=== PATIENT | female | born 1975 | race Caucasian/White ===

== ENCOUNTER 2023-02-07 19:55 | Emergency (ER) | payer OTHER, SELFPAY ==
[2023-02-07] VITALS (12 sets, daily range): BP systolic 126–135; BP diastolic 84–101; PULSE 68–74; RESP 14–19; O2SAT 97–100
--- NOTE | 2023-02-07 21:10 | ED.ALLEREA ---
HPI - Allergic Reaction General Chief complaint: Allergic Reaction Stated complaint: allergic reaction Time Seen by Provider: 02/07/23 20:34 History of Present Illness HPI narrative: 47-year-old female presented the emergency department for evaluation for allergic reaction. Patient states that over the weekend she had [place] and did notice a urticarial rash along her bikini line and left side. Patient did follow-up with urgent care and was started on Medrol Dosepak. Patient states another week she began having intense abdominal pain and patient once again had follow-up with her physicians and the Medrol Dosepak was stopped and patient was started on Zofran and sulcal fate. Patient states since then she has been having intermittent hives and did have some increased swelling of her throat. Related Data Allergies Allergy/AdvReac Type Severity Reaction Status Date / Time Penicillins Allergy Hallucinati Verified 02/07/23 20:10 ng Sulfa (Sulfonamide Allergy Rash Verified 02/07/23 20:10 Antibiotics) Review of Systems Review of Systems: All systems reviewed & are unremarkable except as noted in HPI and below Exam Narrative: APPEARANCE: Well appearing, no pain, no distress, well-nourished. HEAD: normocephalic, atraumatic. EYES: PERRLA/EOMI, conjunctivae clear. NOSE: Normal no drainage EARS:TMS clear with good light reflex. THROAT: Pharynx clear, no exudate. NECK: Supple. No adenopathy, no masses. RESPIRATORY: Airway patent, respirations nonlabored. Clear to auscultation bilaterally, no rales, rhonchi, wheezing. CARDIOVASCULAR: Regular rate and rhythm without murmurs rubs or gallops. ABDOMINAL: Soft, nontender, nondistended, normal bowel sounds MUSCULOSKELETAL: Moves all extremities. Strength/ROM intact, No edema, No calf tenderness. NEURO: Alert. Cranial nerves II through XII intact. Good gait. Good coordination SKIN: Urticarial rash on neck back and legs Course Course Emergency Course: 47-year-old female presented ED for evaluation for perceived throat swelling. Patient does have some lymphadenopathy but no posterior swelling and no stridor. Patient is able to tolerate p.o. in the ED. Patient appears to be having allergic reaction and does have some periorbital swelling on the left. No evidence of cellulitis. Low suspicion for bacterial infection. Patient will be treated with Kenalog 40 and was advised to continue taking her sulcal fate and Zofran to avoid NSAIDs and follow a bland diet. Patient was also encouraged of close follow-up with her primary care physician. All questions and concerns were addressed. Vital Signs Vital signs: Vital Signs Pulse Oximetry 100 02/07/23 20:04 Oxygen Delivery Room Air 02/07/23 20:04 Pulse Rate 68 02/07/23 21:34 Respiratory Rate 17 02/07/23 21:34 Blood Pressure 132/85 02/07/23 21:34 Pulse Oximetry 97 02/07/23 21:34 Oxygen Delivery Room Air 02/07/23 20:04 MDM - Allergic Reaction Differential Diagnosis Differential diagnosis: Likely anaphylaxis, allergic reaction, angioedema, contact dermatitis, adverse reaction to drug, viral enanthem and urticaria Discharge Plan Discharge Clinical Impression: Allergic reaction, Urticaria Patient Disposition: Home, Self-Care Condition: Stable Instructions: Antibiotic Form, Allergies (ED) Additional Instructions: Do not restart the Medrol Dosepak you were treated with IM steroid in the emergency department. Continue taking the Carafate and Zofran. Benadryl as needed for hives and itching. Continue with close follow-up with your primary care physician. Follow-up/Referrals: Lenin Roy MD [Primary Care Provider] -
[2023-02-07] MEDS: TRIAMCINOLONE ACET INJ 40 MG/ML VIAL IM (21:13)
== END 2023-02-07 21:35 | disposition home or self-care (01) ==
PROVIDERS: Emergency Provider Emergency Medicine; PCP Family Medicine
DX: T78.40XA Allergy, unspecified, initial encounter (principal); L50.0 Allergic urticaria
CPT/HCPCS: 96372; 99283; J3301

== ENCOUNTER 2023-08-16 14:10 | Outpatient (CLI) | payer OTHER, SELFPAY | END 2023-08-16 14:11 | disposition home or self-care (01) | LOC: ANHAUDIO 14:11 | PROVIDERS: PCP Family Medicine; Visit Provider Family Medicine | DX: H90.3 Sensorineural hearing loss, bilateral (principal) | CPT/HCPCS: 92557; 92567 ==